=== PATIENT | male | born 1945 | race Caucasian/White ===

== ENCOUNTER 2024-04-13 17:30 | Inpatient (IN) | payer MEDICARE, MEDICAID ==
[~2024-04-13] VITALS: Ht 167.6 cm; Wt 59.0 kg
[2024-04-13 17:35] VITALS: O2SAT 99
[2024-04-13 22:02] LABS: BASOPHILS % 0.9 % (0.0-2.0); EOSINOPHILS % 10.6 % (0.0-5.0); HEMATOCRIT. 44.5 % (42.0-52.0); HEMOGLOBIN. 14.6 g/dL (14.0-18.0); LYMPHOCYTES % 26.9 % (20.0-50.0); MEAN CORPUSCULAR HEMOGLOBIN 30.4 pg (28.0-32.0); MEAN CORPUSCULAR HGB CONC 32.7 g/dL (31.0-37.0); MEAN CORPUSCULAR VOLUME 92.9 fL (80.0-94.0); MEAN PLATELET VOLUME 9.8 fl (7.4-10.4); MONOCYTES % 6.5 % (2.0-8.0); NEUTROPHILS % 55.1 % (40.0-76.0); PLATELET 164 x1000/uL (130-400); RED BLOOD CELL COUNT 4.79 mill/uL (4.7-6.1); RED CELL DISTRIBUTION WIDTH 13.8 % (11.6-14.6); WHITE BLOOD COUNT 7.1 x1000/uL (4.5-11.0)
[2024-04-13 22:12] LABS: CHLORIDE 101 mEq/L (98-107); SODIUM 138 mEq/L (136-145)
[2024-04-13 22:13] LABS: CALCIUM 9.5 mg/dL (8.7-10.4); CARBON DIOXIDE 38 mEq/L (21-32)
[2024-04-13 22:18] LABS: CREATININE 0.6 mg/dL (0.6-1.3); GLUCOSE 149 mg/dL (70-105); UREA NITROGEN BLOOD 9 mg/dL (9-23)
[2024-04-13 22:20] LABS: ALANINE AMINOTRANSFERASE 89 IU/L (10-49); ALBUMIN 3.6 g/dL (3.2-4.8); ASPARTATE AMINOTRANSFERASE 76 IU/L (<34); BILIRUBIN TOTAL 0.7 mg/dL (0.1-1.0); PROTEIN TOTAL 7.7 g/dL (6.0-8.3)
[2024-04-13 22:25] LABS: TROPONIN I HIGH SENSITIVITY < 4 ng/L (3.0-53)
[2024-04-14 03:15] VITALS: BP 149/88; PULSE 79; RESP 21; TEMP 36.6404
[2024-04-14] MEDS ORDERED: LOSA1TAB37 MT (03:39)
[2024-04-14] MEDS ORDERED: CARV12.545 MT (03:39)
[2024-04-14] MEDS ORDERED: IPRATROPIUM/ALBUTEROL 0.5-3(2.5)MG/3ML NEB HHN PRN (07:00)
[2024-04-14] MEDS ORDERED: ACETAMINOPHEN 325MG TABLET PO PRN ×2 (07:00)
[2024-04-14] MEDS ORDERED: ONDANSETRON HCL 4MG/2ML INJ IV PRN (07:00)
[2024-04-14 08:00] VITALS: BP 148/85; PULSE 69; RESP 18; TEMP 36.22512; O2SAT 100
[2024-04-14 11:55] LABS: CHLORIDE 99 mEq/L (98-107); SODIUM 138 mEq/L (136-145)
[2024-04-14 11:56] LABS: CARBON DIOXIDE 36 mEq/L (21-32)
[2024-04-14 11:57] LABS: CALCIUM 9.1 mg/dL (8.7-10.4)
[2024-04-14 12:01] LABS: CREATININE 0.7 mg/dL (0.6-1.3); GLUCOSE 233 mg/dL (70-105); UREA NITROGEN BLOOD 10 mg/dL (9-23)
[2024-04-14 12:03] LABS: ALANINE AMINOTRANSFERASE 90 IU/L (10-49); ALBUMIN 3.1 g/dL (3.2-4.8); ASPARTATE AMINOTRANSFERASE 84 IU/L (<34)
[2024-04-14 12:04] LABS: BILIRUBIN DIRECT 0.3 mg/dL (<=3.0); BILIRUBIN TOTAL 0.7 mg/dL (0.1-1.0)
[2024-04-14 12:22] LABS: HEPATITIS B SURFACE ANTIGEN NEGATIVE (Negative)
[2024-04-14 12:44] LABS: HEPATITIS C AB REACTIVE (Pos) (Negative)
[2024-04-14] MEDS: METHADONE HCL 10MG TABLET PO SCH (13:59)
[2024-04-14] MEDS: CARVEDILOL 12.5MG TABLET PO SCH (13:59)
[2024-04-14] MEDS: GUAIFENESIN 200MG/10ML SUGAR FREE UDC PO PRN (14:00)
[2024-04-14] MEDS: LOSARTAN 25 MG TABLET PO SCH (14:00)
[2024-04-14] MEDS ORDERED: INFLUENZA VACCINE 05/PF 0.5 ML SYRINGE IM ONE (15:00)
[2024-04-14 16:00] VITALS: BP 118/84; PULSE 70; RESP 18; TEMP 36.72516; O2SAT 100
[2024-04-14 20:00] VITALS: BP 115/75; PULSE 74; RESP 16; TEMP 36.61404; O2SAT 94
[2024-04-15] VITALS: BP 109/65; PULSE 64; RESP 16; TEMP 36.44736; O2SAT 92
[2024-04-15 04:00] VITALS: BP 128/80; PULSE 66; RESP 16; TEMP 36.3918; O2SAT 96
[2024-04-15 08:00] VITALS: BP 159/92; PULSE 65; RESP 17; TEMP 36.89184; O2SAT 96
[2024-04-15 09:20] LABS: CHLORIDE 101 mEq/L (98-107); POTASSIUM 4.4 mEq/L (3.5-5.1); SODIUM 139 mEq/L (136-145)
[2024-04-15 09:21] LABS: BASOPHILS % 1.1 % (0.0-2.0); CARBON DIOXIDE 38 mEq/L (21-32); EOSINOPHILS % 13.1 % (0.0-5.0); HEMATOCRIT. 43.3 % (42.0-52.0); HEMOGLOBIN. 13.7 g/dL (14.0-18.0); LYMPHOCYTES % 34.9 % (20.0-50.0); MEAN CORPUSCULAR HEMOGLOBIN 29.3 pg (28.0-32.0); MEAN CORPUSCULAR HGB CONC 31.7 g/dL (31.0-37.0); MEAN CORPUSCULAR VOLUME 92.7 fL (80.0-94.0); MEAN PLATELET VOLUME 10.2 fl (7.4-10.4); MONOCYTES % 8.2 % (2.0-8.0); NEUTROPHILS % 42.7 % (40.0-76.0); PLATELET 157 x1000/uL (130-400); RED BLOOD CELL COUNT 4.68 mill/uL (4.7-6.1); WHITE BLOOD COUNT 6.6 x1000/uL (4.5-11.0)
[2024-04-15 09:22] LABS: CALCIUM 9.4 mg/dL (8.7-10.4)
[2024-04-15 09:26] LABS: CREATININE 0.7 mg/dL (0.6-1.3); GLUCOSE 198 mg/dL (70-105); UREA NITROGEN BLOOD 13 mg/dL (9-23)
[2024-04-15 12:00] VITALS: BP 110/72; PULSE 60; RESP 18; TEMP 36.83628; O2SAT 97
[2024-04-15 16:00] VITALS: BP 131/92; PULSE 55; RESP 18; TEMP 37.00296; O2SAT 97
[2024-04-15 20:00] VITALS: BP 147/90; PULSE 69; RESP 19; TEMP 36.61404; O2SAT 95
[2024-04-16] VITALS: BP 150/89; PULSE 74; RESP 19; TEMP 36.50292; O2SAT 96
[2024-04-16 04:00] VITALS: BP 148/89; PULSE 78; RESP 19; TEMP 36.50292; O2SAT 97
[2024-04-16 08:00] VITALS: BP 124/70; PULSE 59; RESP 19; TEMP 36.44736; O2SAT 97
[2024-04-16] MEDS: DOCUSATE SODIUM 100MG CAPSULE PO PRN (09:36)
[2024-04-16 12:00] VITALS: BP 120/82; PULSE 56; RESP 20; TEMP 35.94732; O2SAT 95
[2024-04-16 16:00] VITALS: BP 169/95; PULSE 60; RESP 19; TEMP 36.55848; O2SAT 94
[2024-04-16] MEDS: CLONIDINE 0.1MG TABLET PO PRN (17:02)
[2024-04-16 20:00] VITALS: BP 122/80; PULSE 62; RESP 19; TEMP 36.6696; O2SAT 95
[2024-04-17 04:00] VITALS: BP 118/78; PULSE 57; RESP 19; TEMP 36.6696; O2SAT 98
[2024-04-17 16:00] VITALS: BP 116/79; PULSE 55; RESP 20; TEMP 36.114; O2SAT 98
[2024-04-17 20:00] VITALS: BP 136/77; PULSE 62; RESP 20; TEMP 36.3918; O2SAT 97
[2024-04-18 04:00] VITALS: BP 123/87; PULSE 65; RESP 20; TEMP 36.55848; O2SAT 98
[2024-04-18 09:15] LABS: BASOPHILS % 1.2 % (0.0-2.0); CHLORIDE 101 mEq/L (98-107); EOSINOPHILS % 12.2 % (0.0-5.0); HEMATOCRIT. 43.4 % (42.0-52.0); HEMOGLOBIN. 13.7 g/dL (14.0-18.0); LYMPHOCYTES % 36.8 % (20.0-50.0); MEAN CORPUSCULAR HEMOGLOBIN 29.2 pg (28.0-32.0); MEAN CORPUSCULAR HGB CONC 31.5 g/dL (31.0-37.0); MEAN CORPUSCULAR VOLUME 92.7 fL (80.0-94.0); MEAN PLATELET VOLUME 10.5 fl (7.4-10.4); MONOCYTES % 7.1 % (2.0-8.0); NEUTROPHILS % 42.7 % (40.0-76.0); PLATELET 166 x1000/uL (130-400); POTASSIUM 4.4 mEq/L (3.5-5.1); RED BLOOD CELL COUNT 4.68 mill/uL (4.7-6.1); RED CELL DISTRIBUTION WIDTH 14.1 % (11.6-14.6); SODIUM 137 mEq/L (136-145); WHITE BLOOD COUNT 7.1 x1000/uL (4.5-11.0)
[2024-04-18 09:16] LABS: CARBON DIOXIDE 35 mEq/L (21-32)
[2024-04-18 09:21] LABS: CREATININE 0.7 mg/dL (0.6-1.3); GLUCOSE 135 mg/dL (70-105); UREA NITROGEN BLOOD 11 mg/dL (9-23)
[2024-04-18 09:23] LABS: PHOSPHORUS 2.9 mg/dL (2.5-4.9)
[2024-04-18] MEDS: LORAZEPAM 2MG/ML INJ IV NR (10:17)
[2024-04-18] MEDS ORDERED: IOHEXOL-350 100 ML BOTTLE ONE (11:36)
[2024-04-18 13:45] VITALS: BP 108/83; PULSE 63; RESP 16; O2SAT 94
[2024-04-18 14:40] VITALS: BP 132/93; PULSE 58; RESP 16; O2SAT 98
[2024-04-18 15:40] VITALS: BP 128/89; PULSE 60; RESP 16; O2SAT 99
[2024-04-18] MEDS: FLUMAZENIL 0.1 MG/ML 5ML VIAL IV SCH (16:31)
[2024-04-18 20:00] VITALS: BP 114/81; PULSE 73; RESP 19; TEMP 36.3918; O2SAT 96
[2024-04-18] MEDS: DEXT 5%/0.9% NACL 1,000 ML IV SCH (21:29)
[2024-04-19] VITALS: BP 122/88; PULSE 83; RESP 19; TEMP 37.11408; O2SAT 97
[2024-04-19 04:00] VITALS: BP 119/78; PULSE 78; RESP 19; TEMP 36.50292; O2SAT 96
[2024-04-19 08:00] VITALS: BP 96/74; PULSE 75; RESP 20; TEMP 36.72516; O2SAT 95
[2024-04-19 12:00] VITALS: BP 118/86; PULSE 68; RESP 19; TEMP 36.50292; O2SAT 96
[2024-04-19 16:00] VITALS: BP 120/83; PULSE 60; RESP 19; TEMP 36.50292; O2SAT 98
[2024-04-19 20:00] VITALS: BP 140/87; PULSE 67; RESP 19; TEMP 36.61404; O2SAT 96
[2024-04-20] VITALS: BP 138/89; PULSE 76; RESP 19; TEMP 36.50292; O2SAT 97
[2024-04-20 04:00] VITALS: BP 142/94; PULSE 69; RESP 19; TEMP 36.00288; O2SAT 96
[2024-04-20 08:00] VITALS: BP 144/88; PULSE 59; RESP 17; TEMP 36.72516; O2SAT 98
[2024-04-20] MEDS: METHADONE HCL 10MG TABLET PO SCH (09:11)
[2024-04-20 12:00] VITALS: BP 124/77; PULSE 62; RESP 19; TEMP 36.3918; O2SAT 97
[2024-04-20 16:00] VITALS: BP 133/85; PULSE 59; RESP 18; TEMP 36.3918; TEMP 36.39180; O2SAT 96
[2024-04-21] MEDS ORDERED: METHADONE HCL 10MG TABLET PO SCH (09:00)
== END 2024-04-20 19:36 | DRG 305 ==
LOC: ER 17:30 → EDBEDREQ 21:25 → EDBEDREQSVC 23:49 → EDBEDREQ 23:49 → 6EST 04-14 03:12
PROVIDERS: ADMIT Family Medicine Adult Medicine; ATTEND Family Medicine Adult Medicine
DX: I16.0 Hypertensive urgency (principal); K40.30 Unilateral inguinal hernia, with obstruction, without gangrene, not specified as recurrent; J44.1 Chronic obstructive pulmonary disease with (acute) exacerbation; F11.20 Opioid dependence, uncomplicated; Z99.81 Dependence on supplemental oxygen; I10 Essential (primary) hypertension; E11.40 Type 2 diabetes mellitus with diabetic neuropathy, unspecified; E11.65 Type 2 diabetes mellitus with hyperglycemia; J43.9 Emphysema, unspecified; N50.89 Other specified disorders of the male genital organs; F17.200 Nicotine dependence, unspecified, uncomplicated; G89.4 Chronic pain syndrome; N28.1 Cyst of kidney, acquired; F41.9 Anxiety disorder, unspecified; Z82.49 Family history of ischemic heart disease and other diseases of the circulatory system; Z79.899 Other long term (current) drug therapy
CPT/HCPCS: 36415; 74177; 76870; 80048; 80053; 80076; 83036; 83735; 84100; 84484; 85025; 86705; 87340; 92523; 93005; 93306; 93970; 93976; 97110; 97162; 97166; 97530; 97535; 99285; J2060; J3490; J7042; Q9967

== ENCOUNTER 2024-05-23 13:02 | Emergency (ER) | payer MEDICARE, MEDICAID ==
[~2024-05-23] VITALS: Ht 172.7 cm; Wt 64.0 kg
[~2024-05-23 13:02] MED LIST: CARV12.545 MT; CLAR10 PO; LINA5TAB PO; LOSA25TA26 PO; METF-414 PO; METH-818 PO; MONT-46 PO
[2024-05-23 13:08] VITALS: BP 177/95; PULSE 70; RESP 16; TEMP 98.7; O2SAT 96
[2024-05-23 16:13] LABS: BASOPHILS % 0.6 % (0.0-2.0); EOSINOPHILS % 4.6 % (0.0-5.0); HEMATOCRIT. 44.7 % (42.0-52.0); HEMOGLOBIN. 14.1 g/dL (14.0-18.0); LYMPHOCYTES % 28.7 % (20.0-50.0); MEAN CORPUSCULAR HEMOGLOBIN 29.9 pg (28.0-32.0); MEAN CORPUSCULAR HGB CONC 31.6 g/dL (31.0-37.0); MEAN CORPUSCULAR VOLUME 94.7 fL (80.0-94.0); MEAN PLATELET VOLUME 9.8 fl (7.4-10.4); MONOCYTES % 6.8 % (2.0-8.0); NEUTROPHILS % 59.3 % (40.0-76.0); PLATELET 145 x1000/uL (130-400); RED BLOOD CELL COUNT 4.72 mill/uL (4.7-6.1); WHITE BLOOD COUNT 5.7 x1000/uL (4.5-11.0)
[2024-05-23 16:29] LABS: TROPONIN I HIGH SENSITIVITY < 4 ng/L (3.0-53)
[2024-05-23 16:30] LABS: CHLORIDE 102 mEq/L (98-107); POTASSIUM 4.7 mEq/L (3.5-5.1); SODIUM 136 mEq/L (136-145)
[2024-05-23 16:31] LABS: CALCIUM 9.1 mg/dL (8.7-10.4); CARBON DIOXIDE 26 mEq/L (21-32)
[2024-05-23 16:36] LABS: CREATININE 0.7 mg/dL (0.6-1.3); GLUCOSE 178 mg/dL (70-105); UREA NITROGEN BLOOD 10 mg/dL (9-23)
== END 2024-05-23 17:23 | disposition home or self-care (01) ==
LOC: ER 13:02
DX: I10 Essential (primary) hypertension (principal); E11.9 Type 2 diabetes mellitus without complications; J44.9 Chronic obstructive pulmonary disease, unspecified; F19.90 Other psychoactive substance use, unspecified, uncomplicated; Z79.899 Other long term (current) drug therapy
CPT/HCPCS: 36415; 71045; 80048; 83880; 84484; 85025; 99284